=== PATIENT | female | born 1985 | race Caucasian/White ===

== ENCOUNTER 2017-09-06 16:33 | Emergency (ER) | payer BC, OTHER ==
[~2017-09-06] VITALS: Ht 162.6 cm; Wt 81.6 kg
[2017-09-06] MEDS ORDERED: NAPR500T8 PO (17:28)
[2017-09-06] MEDS ORDERED: HYDR-757 PO (17:28)
--- NOTE | 2017-09-06 17:28 | ED Lower Extremity ---
General Chief Complaint: Lower Extremity Stated Complaint: L KNEE PAIN AFTER JUMPING AND LANDING WRONG Source: patient Exam Limitations: no limitations History of Present Illness Time seen by provider: 17:25 Initial Comments To ER with left knee pain after jumping and landing wrong. She felt a popping sensation in the left knee. She has been unable to bear weight on this since the injury. She is here for a football game but resides just [place]. Onset: just prior to arrival Severity: moderate Pain/Injury Location: left knee Method of Injury: fell Modifying Factors: Worse With Movement Allergies and Home Medications Allergies Coded Allergies: No Known Drug Allergies (Unverified , 09/06/17) Constitutional: see HPI EENTM: see HPI Respiratory: no symptoms reported Cardiovascular: no symptoms reported Genitourinary: no symptoms reported Musculoskeletal: see HPI Skin: no symptoms reported Past Sfxsowi-Jmnnlw-Puiktb Hx Patient Social History Alcohol Use: Denies Use Recreational Drug Use: No Smoking Status: Never a Smoker 2nd Hand Smoke Exposure: No Recent Foreign Travel: No Contact w/Someone Who Travel: No Recent Hopitalizations: No Physical Abuse: No Sexual Abuse: No Mistreated: No Fear: No Immunizations Up To Date Tetanus Booster (TDap): Less than 5yrs PED Vaccines UTD: Yes Seasonal Allergies Seasonal Allergies: No Surgeries History of Surgeries: Yes Surgeries: Gallbladder Respiratory History of Respiratory Disorde: No Cardiovascular History of Cardiac Disorders: No Neurological History of Neurological Disord: No Genitourinary History of Genitourinary Disor: No Gastrointestinal History of Gastrointestinal Di: No Musculoskeletal History of Musculoskeletal Dis: No Endocrine History of Endocrine Disorders: No HEENT History of HEENT Disorders: No Cancer History of Cancer: No Psychosocial History of Psychiatric Problem: Yes Behavioral Health Disorders: Anxiety Suicide Risk Score: 0 Integumentary History of Skin or Integumenta: No Physical Exam Vital Signs Capillary Refill : General Appearance: WD/WN, no apparent distress HEENT: PERRL/EOMI, normal ENT inspection Neck: non-tender, full range of motion Respiratory: no respiratory distress, no accessory muscle use Gastrointestinal: normal bowel sounds, non tender Hips: bilateral hip non-tender, bilateral hip normal inspection, bilateral hip normal range of motion Legs: bilateral leg non-tender, bilateral leg normal inspection, bilateral leg normal range of motion Knees: bilateral knee normal inspection, bilateral knee normal range of motion , left knee other (no palpable effusion, no erythema, no ecchymosis) Ankles: bilateral ankle non-tender, bilateral ankle normal inspection, bilateral ankle normal range of motion Feet: bilateral foot non-tender Progress/Results/Core Measures Results/Orders My Orders Orders - TC OLSON APRN Ketorolac Injection (Toradol Injection) (09/06/17 17:30) Departure Impression Impression: Primary Impression: Internal derangement of knee Disposition: HOME, SELF-CARE Condition: Stable Departure-Patient Inst. Decision time for Depature: 17:26 Referrals: NO,LOCAL PHYSICIAN (PCP/Family) Primary Care Physician Patient Instructions: NO INSTRUCTIONS GIVEN Add. Discharge Instructions: 1. Pain medication as directed 2. Crutches as needed when walking. When you feel like you're able to bear weight without pain and you may stop using the crutches. Wear the knee immobilizer for the next 2-3 days 3. Follow-up with a physician and your hometown for further evaluation within the next 1-2 weeks if pain persists as you may wish to pursue MRI to evaluate the meniscus and the ligaments at that time. All discharge instructions reviewed with patient and/or family. Voiced understanding. Scripts Hydrocodone/Acetaminophen ([place] 5-325 Tablet) 1 Each Tablet 1 EACH PO Q6H Y for PAIN-SEVERE TO BREAKTHROUGH, #10 TAB Prov: TC OLSON APRN 09/06/17 Naproxen (Naproxen) 500 Mg Tablet.dr 500 MG PO BID Y for PAIN-MODERATE, #30 TAB Prov: TC OLSON APRN 09/06/17 TC OLSON APRN Sep 06, 2017 17:28
[2017-09-06] MEDS ORDERED: KETOROLAC 60 MG/2 ML VIAL IM ONE (17:30)
--- NOTE | 2017-09-06 17:43 | Diagnostic Imaging Report ---
INDICATION: Patient jumped at game and felt pop. EXAMINATION: Four views of the left knee were obtained. FINDINGS: Joint spaces are well preserved. Articulating surfaces are smooth. Patellofemoral joint is in good alignment. There are no fractures. IMPRESSION: Negative left knee. Dictated by: Dictated on workstation # [id number]
[2017-09-06 18:15] VITALS: BP 138/76
== END 2017-09-06 18:15 | disposition home or self-care (01) ==
LOC: ER 16:39
DX: M23.92 Unspecified internal derangement of left knee (principal); F41.9 Anxiety disorder, unspecified; X50.0XXA Overexertion from strenuous movement or load, initial encounter
CPT/HCPCS: 73562; 99284